=== PATIENT | male | born 1965 | race Caucasian/White ===

== ENCOUNTER 2023-02-25 08:34 | Emergency (ER) | payer BC ==
--- NOTE | 2023-02-25 10:13 | ED Physician Documentation ---
PD HPI MALE - Stated complaint Stated Complaint: MALE - Chief complaint Chief Complaint: UTI - History obtained from History obtained from: Patient - History of Present Illness Timing - onset: Today Timing - duration: Days (1) Timing - details: Abrupt onset, Still present Associated symptoms: Hematuria (he noted onset of gross hematuria with some clots in urine started this morning. No abd nor flank pain.). No: Dysuria, Urinary frequency, Genital sore / lesion, Abdominal pain, Back pain Similar symptoms before: Has not had sx before Review of Systems Constitutional: denies: Fever, Chills GI: denies: Abdominal Pain, Nausea, Vomiting Skin: denies: Rash, Lesions Musculoskeletal: denies: Back pain PD PAST MEDICAL HISTORY - Past Medical History Past Medical History: No - Past Surgical History Past Surgical History: Yes - Present Medications Home Medications: Ambulatory Orders Medication Instructions Recorded Confirmed cephALEXin [Keflex] 500 mg PO TID #20 cap 02/25/23 - Allergies Allergies/Adverse Reactions: Allergies Allergy/AdvReac Type Severity Reaction Status Date / Time Latex, Natural Rubber Allergy Anaphylaxis Verified 02/25/23 08:41 - Social History Does the pt smoke?: No Smoking Status: Never smoker PD ED PE NORMAL - Vitals Vital signs reviewed: Yes - General General: Alert and oriented X 3, No acute distress, Well developed/nourished - Abdomen Abdomen: Normal bowel sounds, Soft, Non tender, Non distended - Back Back: No CVA TTP - Derm Derm: Normal color, Warm and dry, No rash - Extremities Extremities: Normal ROM s pain - Neuro Neuro: Alert and oriented X 3, No motor deficit, Normal speech Results - Vitals Vitals: Vital Signs - 24 hr 02/25/23 02/25/23 08:35 14:59 Temperature 37 C 35.5 C L Heart Rate 82 77 Respiratory 18 16 Rate Blood Pressure 164/88 H 126/70 O2 Saturation 100 99 Oxygen O2 Source Room air - Labs Labs: Laboratory Tests 02/25/23 02/25/23 02/25/23 10:05 10:58 10:58 WBC 6.7 RBC 5.18 Hgb 15.6 Hct 45.6 MCV 88.0 MCH 30.1 MCHC 34.2 RDW 12.9 Plt Count 186 MPV 9.7 Neut # (Auto) 5.2 Lymph # (Auto) 0.9 L [place] # (Auto) 0.5 Eos # (Auto) 0.0 Baso # (Auto) 0.0 Absolute Nucleated RBC 0.00 Nucleated RBC % 0.0 Sodium 133 L Potassium 4.3 Chloride 98 L Carbon Dioxide 27 Anion Gap 8.0 BUN 11 Creatinine 0.8 Estimated GFR (MDRD) 99 Glucose 355 H Calcium 9.6 Total Bilirubin 0.7 AST 17 ALT 18 Alkaline Phosphatase 103 Total Protein 7.6 Albumin 4.4 Globulin 3.2 Albumin/Globulin Ratio 1.4 Lipase 27 Urine Color RED/BLOODY Urine Clarity BLOODY Urine pH 6.5 Ur Specific [place] 1.010 Urine Protein 30 H Urine Glucose (UA) >=1000 H Urine Ketones 15 H Urine Occult Blood LARGE H Urine Nitrite NEGATIVE Urine Bilirubin NEGATIVE Urine Urobilinogen 0.2 (NORMAL) Ur Leukocyte Esterase NEGATIVE Urine RBC TNTC H Urine WBC 0-3 Ur Squamous Epith Cells RARE Squamous Urine Bacteria Few Ur Microscopic Review INDICATED Urine Culture Comments NOT INDICATED - Rads (name of study) abd/pelvic CT with contrast Relevant Findings:: Prelim report reviewed, EMP independent interpretation of test (ill defined density 3 cm in left bladder. No kidney stones nor masses. ) PD Medical Decision Making - ED course Complexity details: reviewed results (no signs UTI on UA. ), considered differential, d/w patient Reviewed Lab Results: ill defined soft tissue mass versus large clot left side of bladder. Concerning for malignancy. Needs Urology follow up promptly. No other masses/abnormalities noted on abd/pelvic CT. Kidney appear normal. No ureteral stones. He has hematuria without signs of UTI. Departure - Departure Disposition: 01 Home, Self Care Clinical Impression: Hematuria, Bladder mass Condition: Stable Record reviewed to determine appropriate education?: Yes Instructions: ED Hematuria Follow-Up: Kal Sampson MD [Provider Admit Priv/Credential] - Prescriptions: cephALEXin [Keflex] 500 mg PO TID #20 cap Comments: Your urine test shows signs of blood of course but no obvious signs of infection. It still possible that an infection could be causing some bleeding or irritation. We would typically go with an antibiotic short-term just to cover that in case. Your CT scan does not show any obvious kidney stones nor masses or tumors of the kidney or ureter. There is what appears to be either clot or some enlarged tissue in a corner of the bladder. At this point I would suggest following up with urology for further evaluation of the bladder itself. Call the urology office this afternoon or tomorrow morning for an appointment follow-up. They typically will get you in more promptly if you say you have been to the ER and explain the conditions prompting the referral. Stay well-hydrated otherwise. Discharge Date/Time: 02/25/23 15:01
[2023-02-25 10:26] LABS: BILIRUBIN,URINE NEGATIVE (NEGATIVE); GLUCOSE, URINE (UA) >=1000 mg/dL (NEGATIVE); KETONES,URINE (UA) 15 mg/dL (NEGATIVE); LEUKOCYTE ESTERASE, URINE NEGATIVE (NEGATIVE); NITRITE,URINE NEGATIVE (NEGATIVE); OCCULT BLOOD,URINE LARGE (NEGATIVE); PH,URINE 6.5 PH (5.0-7.5); PROTEIN,URINE 30 mg/dL (NEGATIVE); UROBILINOGEN,URINE 0.2 (NORMAL) E.U./dL (NORMAL)
[2023-02-25 10:28] LABS: CLARITY,URINE BLOODY (CLEAR)
[2023-02-25 10:33] LABS: BACTERIA,URINE Few /HPF (None Seen); RBC,URINE TNTC /HPF (0-5); SQUAMOUS EPITHELIAL CELL,UR RARE Squamous (<= Few); WBC,URINE 0-3 /HPF (0-3)
[2023-02-25 11:11] LABS: BASOPHILS % (AUTO) 0.2 %; EOSINOPHILS % (AUTO) 0.2 %; HCT - HEMATOCRIT 45.6 % (42.0-52.0); HGB - HEMOGLOBIN 15.6 g/dL (14.0-18.0); LYMPHOCYTES # (AUTO) 0.9 10^3/uL (1.5-3.5); LYMPHOCYTES % (AUTO) 13.5 %; MEAN CORPUSCULAR HEMOGLOBIN 30.1 pg (27.0-31.0); MEAN CORPUSCULAR HGB CONC 34.2 g/dL (32.0-36.0); MEAN PLATELET VOLUME 9.7 fL (7.4-11.4); MONOCYTES # (AUTO) 0.5 10^3/uL (0.0-1.0); MONOCYTES % (AUTO) 7.7 %; NEUTROPHILS # (AUTO) 5.2 10^3/uL (1.5-6.6); NEUTROPHILS % (AUTO) 78.1 %; PLT - PLATELET COUNT 186 10^3/uL (130-450); RED BLOOD COUNT 5.18 10^6/uL (4.70-6.10); RED CELL DISTRIBUTION WIDTH 12.9 % (12.0-15.0); WHITE BLOOD COUNT 6.7 x10^3/uL (4.8-10.8)
[2023-02-25 11:29] LABS: ALBUMIN 4.4 g/dL (3.2-5.5); ALBUMIN/GLOBULIN RATIO 1.4 (1.0-2.2); BILIRUBIN,TOTAL 0.7 mg/dL (0.2-1.0); CALCIUM 9.6 mg/dL (8.5-10.3); CREATININE 0.8 mg/dL (0.6-1.3); POTASSIUM 4.3 mmol/L (3.5-4.5); TOTAL PROTEIN 7.6 g/dL (6.4-8.9)
[2023-02-25] MEDS ORDERED: iohexoL-300 100 ML VIAL IVP ONE (14:05)
[2023-02-25] MEDS ORDERED: cephALEXin 250 MG CAPSULE PO STA (14:41)
--- NOTE | 2023-02-25 14:51 | CT Report ---
PROCEDURE: Abdomen/Pelvis W INDICATIONS: hematuria, new onset. CONTRAST: 100ml omin 300 TECHNIQUE: After the administration of intravenous contrast, a CT scan of the abdomen and pelvis was performed. Images were recorded and evaluated at appropriate window settings. Reformats: coronal and sagittal. F or radiation dose reduction, the following was used: automated exposure control, adjustment of mA and /or kV according to patient size. COMPARISON: None. FINDINGS: Image quality: Excellent. Lung bases and heart: Unremarkable. Liver: No solid mass. Hepatic steatosis is seen. Gallbladder and biliary tree: There is no calcified gallstone. No gallbladder wall thickening. No int ra or extrahepatic biliary ductal dilatation. Spleen: No splenomegaly. Pancreas: No pancreatic ductal dilation. Adrenals: No adrenal nodule. Kidneys and ureters: No hydronephrosis. No renal cystic lesion which requires follow up. No solid mas s. Bowel and peritoneum: No bowel distension. No pathologic free fluid. Appendix is visualized and is no rmal in size and appearance. Lymph nodes: No central or retroperitoneal adenopathy. Vessels: No infrarenal aortic aneurysm. PELVIS Reproductive organs: Unremarkable. Bladder: There is ill-defined hyperdensity within left side of urinary bladder lumen and measures up to 2.1 x 3.1 x 2.4 cm in size, best seen on series 2 image 90 and series 5 image 28. No significant u rinary bladder wall thickening. Pelvic lymph nodes: No pelvic adenopathy by size criteria. Bones: No aggressive osseous abnormality. Other: No significant ventral or inguinal hernia. IMPRESSION: 1. Ill-defined 2.1 x 3.1 x 2.4 cm soft tissue density within left side of the bladder lumen highly co ncerning for neoplastic process such as transitional cell carcinoma suggest urological correlation. 2. No renal stones or hydronephrosis. No hydroureter. 3. Hepatic steatosis, no hepatic lesion. 4. No bowel obstruction or abnormal bowel wall thickening. Normal appendix. No free fluid or free air . Reviewed by: Hansel Bull MD on 02/25/2023 2:50 PM PST Approved by: Hansel Bull MD on 02/25/2023 2:50 PM PST Station ID: [id number]
[2023-02-25 15:01] VITALS: BP 126/70; O2SAT 99
== END 2023-02-25 15:01 | disposition home or self-care (01) ==
LOC: ED 08:34
DX: R31.0 Gross hematuria (principal); N32.89 Other specified disorders of bladder
CPT/HCPCS: 36415; 74177; 80053; 81001; 83690; 85025; 99284; A9270; Q9967; 81003; 87086

== ENCOUNTER 2023-03-03 08:30 | Outpatient (CLI) | payer BC | END 2023-03-03 23:59 | disposition critical access hospital (66) | LOC: EMS 08:30 | DX: R31.0 Gross hematuria (principal); R35.0 Frequency of micturition; R39.89 Other symptoms and signs involving the genitourinary system | CPT/HCPCS: A0425; A0429 ==

== ENCOUNTER 2023-03-03 08:55 | Emergency (ER) | payer BC ==
--- NOTE | 2023-03-03 09:10 | ED Physician Documentation ---
History of Present Illness - Stated complaint Stated Complaint: - Chief complaint Chief Complaint: Abd Pain - History obtained from History obtained from: Patient - Additonal information Additional information: The patient comes to the emergency department chief complaint of ongoing hematuria and now, intermittent urinary retention. He states that he has been passing clots and that since about 9:00 last night, he has had the constant urge to urinate. He states he will begin urinating but the stream will abruptly stop and he will feel a pressure in his bladder area. He states sometimes, he can get clots to pass and that this relieves some of the urge but that he was up all night trying to urinate because the urge kept coming back. He states that he has an appoint with urology in 2 days. He was just seen in the emergency department a few days ago for the same problem and had a full workup at that time including urinalysis and CT scan. The workup was unremarkable but the patient was started on Keflex anyway in case of an occult urinary tract infection. He is on his last day of Keflex now and states that he really has not had any dysuria per se or any abdominal pain. He denies fevers or chills. No nausea or vomiting. No history of urological issues previously. He is not on any anticoagulants. No other complaints at this time. PD PAST MEDICAL HISTORY - Past Medical History Past Medical History: Yes : Retention - Past Surgical History Past Surgical History: Yes - Present Medications Home Medications: Ambulatory Orders Medication Instructions Recorded Confirmed cephALEXin [Keflex] 500 mg PO TID #20 cap 02/25/23 03/03/23 - Allergies Allergies/Adverse Reactions: Allergies Allergy/AdvReac Type Severity Reaction Status Date / Time Latex, Natural Rubber Allergy Anaphylaxis Verified 03/03/23 09:06 - Social History Does the pt smoke?: No Smoking Status: Never smoker Does the pt drink ETOH?: No Does the pt have substance abuse?: No - Immunizations Immunizations are current?: Yes - POLST Patient has POLST: No PD ED PE NORMAL - Vitals Vital signs reviewed: Yes - General General: Alert and oriented X 3, No acute distress, Well developed/nourished - HEENT HEENT: Atraumatic, PERRL, EOMI, Moist mucous membranes - Neck Neck: Supple, no meningeal sign - Cardiac Cardiac: RRR, No murmur - Respiratory Respiratory: No respiratory distress, Clear bilaterally - Abdomen Abdomen: Soft, Non tender, Non distended - Derm Derm: Normal color, Warm and dry, No rash - Extremities Extremities: No deformity, No edema - Neuro Neuro: Alert and oriented X 3, Other (Grossly intact) - Psych Psych: Normal mood, Normal affect Results - Vitals Vitals: Oxygen O2 Source Room air PD Medical Decision Making - ED course Complexity details: reviewed old records, reviewed results, re-evaluated patient, considered differential, d/w patient ED course: I reviewed the patient's workup from his visit the other day. I did not feel that these things needed to be repeated, as patient's culture was negative and he was finishing his course of antibiotics and did not have any other symptoms of UTI. He had already had a negative CT scan. I did order bladder scan with Borrego catheter placement and bladder irrigation, as I suspected that the clots were likely jamming up the bladder outlet and causing the intermittent stream and constant feeling of incomplete evacuation. Catheter was placed and drained well. Irrigation was performed until no clots were passing. Patient is advised to follow-up with his urologist as planned. We have discussed the usual indications for return. Departure - Departure Disposition: 01 Home, Self Care Clinical Impression: Urinary retention Condition: Stable Instructions: ED Catheter Care [place], ED Retention Urinary Male Comments: You were found to have about 700 mL of urine in your bladder today. A Borrego catheter has been placed, which she should keep in place until you see urology on . Your bladder has been draining very well with minimal clotting, which is promising. Please be sure you are drinking a large amount of fluid to keep your urine diluted and to help wash out any blood or small clots that may want to form. If you find that you are not having any urine draining from your catheter and your bladder is becoming increasingly uncomfortable, please return to the emergency department so we can scan your bladder again and irrigate your catheter. Otherwise, please plan to follow-up with Dr. Sampson as scheduled on . Forms: PCP List Discharge Date/Time: 03/03/23 12:38
[2023-03-03] MEDS ORDERED: LIDOCAINE 2% URO-JET 5 ML SYRINGE UR STA (09:22)
[2023-03-03 09:33] VITALS: O2SAT 98
[2023-03-03 12:41] VITALS: BP 147/86
== END 2023-03-03 12:38 | disposition home or self-care (01) ==
LOC: EDUNIT# → ED 08:55
DX: R33.9 Retention of urine, unspecified (principal)
CPT/HCPCS: 51700; 99283

== ENCOUNTER 2023-03-09 10:58 | Day surgery (SDC) | payer BC ==
[2023-03-09] MEDS ORDERED: ceFAZolin 2 GM VIAL ONE (11:09)
[2023-03-09] MEDS ORDERED: LACTATED RINGERS 1,000 ML IV ONE (11:14)
[2023-03-09] MEDS ORDERED: LIDOCAINE-PF 2% 10 ML AMP SUBQ ONE (12:18)
[2023-03-09] MEDS ORDERED: MIDAZOLAM 2 MG/2 ML VIAL ONE (12:18)
[2023-03-09] MEDS ORDERED: PROPOFOL 200 MG/20 ML VIAL IVP ONE (12:18)
[2023-03-09] MEDS ORDERED: fentaNYL 100 MCG/2 ML VIAL ONE (12:18)
[2023-03-09] MEDS ORDERED: KETOROLAC 30 MG/ML VIAL ONE (12:20)
[2023-03-09] MEDS ORDERED: ONDANSETRON 4 MG/2 ML VIAL ONE (12:20)
[2023-03-09] MEDS ORDERED: ROCURONIUM 50 MG/5 ML VIAL ONE (12:22)
[2023-03-09] MEDS ORDERED: MORPHINE 2 MG/ML CARPUJECT IVP PRN (12:30)
[2023-03-09] MEDS ORDERED: METOCLOPRAMIDE 10 MG/2 ML VIAL IVP PRN (12:30)
[2023-03-09] MEDS ORDERED: ATROPINE ABBOJECT 1 MG/10 ML SYRINGE IVP PRN (12:30)
[2023-03-09] MEDS ORDERED: ONDANSETRON 4 MG/2 ML VIAL IVP PRN ×2 (12:30→13:59)
[2023-03-09] MEDS ORDERED: ePHEDrine 50 MG/ML VIAL IVP PRN (12:30)
[2023-03-09] MEDS ORDERED: HYDROmorphone 0.5 MG/0.5 ML SYRINGE IVP PRN (12:30)
[2023-03-09] MEDS ORDERED: NALOXONE 0.4 MG/ML VIAL IVP PRN (12:30)
[2023-03-09] MEDS ORDERED: fentaNYL 100 MCG/2 ML VIAL IVP PRN (12:30)
--- NOTE | 2023-03-09 12:30 | ANESTHESIA ---
Pre-Anesthesia VS, & Labs - Diagnosis bladder tumor - Procedure TURBT Vital Signs: Temp Pulse Resp BP Pulse Ox O2 Flow Rate 36.7 C 100 16 149/87 H 97 03/09/23 11:15 03/09/23 11:15 03/09/23 11:15 03/09/23 11:15 03/09/23 11:15 Height: 6 ft 2 in Weight (kg): 89 kg Body Mass Index: 25.2 BMI Classification: Overweight - NPO >8 hours Home Medications and Allergies Home Medications: Ambulatory Orders No Known Home Medications 03/09/23 No Known Home Medications 03/09/23 Allergies/Adverse Reactions: Allergies Allergy/AdvReac Type Severity Reaction Status Date / Time Latex, Natural Rubber Allergy Anaphylaxis Verified 03/09/23 11:15 Anes History & Medical History - Anesthetic History Anesthesia Complications: reports: No previous complications Family history of Anesthesia Complications: Denies Family history of Malignant Hyperthermia: Denies - Medical History Cardiovascular: reports: None Pulmonary: reports: None Gastrointestinal: reports: None Urinary: reports: Retention Neuro: reports: None Musculoskeletal: reports: None Endocrine/Autoimmune: reports: None Skin: reports: None Smoking Status: Never smoker Psychosocial: reports: Alcohol, Cannabis History of Cancer?: Yes - Surgical History General: reports: Other (hernia) Exam General: Alert, Oriented x3, Cooperative Dental: WNL Mouth Openin Fingerbreadth Neck Mobility: Normal Mallampati classification: I Thyromental Distance: 4-6 cm Respiratory: Lungs clear Cardiovascular: Regular rate Plan Anesthesia Type: General Consent for Procedure(s) Verified and Reviewed: Yes Code Status: Attempt Resuscitation ASA classification: 3-Severe systemic disease Is this case an emergency?: No
[2023-03-09] MEDS ORDERED: LIDOCAINE 2% URO-JET 5 ML SYRINGE UR ONE ×2 (12:31→13:48)
[2023-03-09] MEDS ORDERED: LACTATED RINGERS 1,000 ML IV SCH (13:00)
[2023-03-09] MEDS ORDERED: SUGAMMADEX 200 MG/2 ML VIAL IVP ONE (13:46)
[2023-03-09] MEDS ORDERED: HYDROcod/ACETAM 5/325 MG TABLET PO PRN (13:59)
--- NOTE | 2023-03-09 14:03 | Discharge Plan ---
Discharge Plan Problem Reviewed?: Yes Disposition: Home, Self Care Condition: Good Prescriptions: Docusate Sodium 100Mg Capsule [Colace 100Mg Capsule] 100 mg PO DAILY #7 cap HYDROcod/ACETAM 5/325 [[place] 5/325] 1 tab PO Q4H PRN #10 tablet PRN Reason: Pain Diet: Regular Activity Restrictions: Additional Comments (as instructed) Shower Restrictions: No Driving Restrictions: No Instruction Topics: Transureth Bladder Tumor Resect Dc No Smoking: If you smoke, Please STOP! Call for help. Follow-up with: Kal Sampson MD [Provider Admit Priv/Credential] -
[2023-03-09] MEDS ORDERED: LACTATED RINGERS 400 ML IV ONE (14:05)
--- NOTE | 2023-03-09 14:06 | OPERATIVE REPORT ---
Operative Report - General Procedure Date: 03/09/23 Planned Procedure: transurethral resection of bladder tumor Pre-Op Diagnosis: bladder mass Procedure Performed: transurethral resection of bladder tumor 2.5cm Post Op Diagnosis: bladder mass - Procedure Note Primary Surgeon: Adrián Anesthesia Provider: DESHAWN Yen Anesthesia Technique: General ET tube Pathology: bladder mass Estimated Blood Loss (mL): 2 Findings: 2.5cm papillary lesion over left lateral wall, 2cm lateral to left UO Complications: none - Other Other Information/Narrative: After informed consent was obtained the patient was brought to the OR and laid in the supine position. The patient was anesthetized per anesthesia protocols and prepped and draped in usual sterile fashion in the dorsolithotomy position. A formal timeout was performed reconfirming the patient and procedure. A 26 [place] resectoscope was advanced easily into the urinary bladder. The bladder was inspected and full and there was a 2.5 cm papillary mass arising from the left lateral bladder wall about 2 cm lateral to the left ureteral orifice. There were no other lesions or masses or mucosal abnormalities of concern. His ureteral orifices were identified and were orthotopic in nature. Using loop electrocautery and the bipolar setting this mass was fully resected and sent for analysis. Spot cautery was used for hemostasis. The bladder was emptied and this concluded the procedure a Uro-Jet was placed. The patient brought to PACU that further incident. All counts are correct
[2023-03-09 14:53] VITALS: O2SAT 100
[2023-03-09 15:02] VITALS: BP 140/92
--- NOTE | 2023-03-09 15:55 | ANESTHESIA POST OP EVALUATION ---
Anesthesia Post Eval - Post Anesthesia Eval Vitals: Last Vital Signs Temp 36.2 C L 03/09/23 14:54 Pulse 86 03/09/23 14:54 Resp 16 03/09/23 14:54 BP 140/92 H 03/09/23 14:54 Pulse Ox 100 03/09/23 14:54 O2 Flow Rate CV Function Including HR & BP: Stable Pain Control: Satisfactory Nausea & Vomiting: Negative Mental Status: Baseline Respiratory Status: Airway Patent Hydration Status: Satisfactory Anesthesia Complications: None
== END 2023-03-09 10:59 | disposition home or self-care (01) ==
LOC: SDS 10:58
PROVIDERS: ATTEND Urology
PROC: 0TBB8ZX Excision of Bladder, Via Natural or Artificial Opening Endoscopic, Diagnostic (ICD-10-PCS; principal; 2023-03-09 12:00)
DX: C67.2 Malignant neoplasm of lateral wall of bladder (principal)
CPT/HCPCS: 52235; J7120